=== PATIENT | male | born 1985 | race Caucasian/White ===

== ENCOUNTER 2019-05-29 14:40 | Inpatient (IN) | payer BC, MEDICAID ==
[~2019-05-29] VITALS: Ht 193 cm; Wt 95.3 kg
[~2019-05-29 14:40] MED LIST: HYDR12.5 PO; IMI50 PO; NAPR-1718 PO
[2019-05-29 15:06] VITALS: BP 116/69
--- NOTE | 2019-05-29 16:05 | NUR ---
PT AMBULATED TO BED 01
--- NOTE | 2019-05-29 16:11 | NUR ---
c/o sudden onset of n/v/d x 3 days; seen in [facility] rx mary anne asher returns today with hyperemesis---unable to tolerate any po including fluid epigastric pain Denies ETOH. Admits to "smoking weed". VSS hx---anxiety, laparoscopic cholecystectomy rx---none
--- NOTE | 2019-05-29 16:48 | NUR ---
DR RENTERIA EVALUATING PT @ BEDSIDE
[2019-05-29] MEDS ORDERED: ONDANSETRON 4 MG/2 ML VIAL ONE (16:51)
[2019-05-29] MEDS ORDERED: MORPHINE SULFATE 2 MG/ML SYR IVP ONE (17:00)
[2019-05-29] MEDS ORDERED: FAMOTIDINE 20 MG/2 ML VIAL IVP ONE (17:00)
[2019-05-29] MEDS ORDERED: NACL 0.9% 1,000 ML IV ONE (17:00)
[2019-05-29] MEDS ORDERED: METOCLOPRAMIDE 10 MG/2 ML INJ VIAL IVP ONE ×2 (17:00→18:05)
[2019-05-29 17:38] LABS: ALBUMIN 3.8 g/dL (3.4-5.0); ANION GAP 19.9 (8-16); CARBON DIOXIDE 20.9 mmol/L (21-32); TOTAL BILIRUBIN 0.5 mg/dL (0.0-1.0)
[2019-05-29 17:43] LABS: POTASSIUM 2.8 mmol/L (3.5-5.1)
--- NOTE | 2019-05-29 17:53 | NUR ---
URINE SAMPLE OBTAINED
[2019-05-29 18:03] LABS: BASOPHILS % (AUTO) 0.2 % (0.0-2.0); HEMATOCRIT 40.7 % (36-52); HEMOGLOBIN 13.4 g/dL (12.0-18.0); LYMPHOCYTES # (AUTO) 0.8 K/uL (2.0-11.5); LYMPHOCYTES % (AUTO) 7.1 % (20.5-51.1); MEAN CORPUSCULAR HEMOGLOBIN 29 pg (27-31); MEAN CORPUSCULAR HGB CONC 33 g/dL (33-37); MEAN CORPUSCULAR VOLUME 88.9 fL (80-94); MONOCYTES # (AUTO) 0.6 K/uL (0.8-1.0); MONOCYTES % (AUTO) 5.6 % (1.7-9.3); NEUTROPHILS # (AUTO) 9.3 K/uL (1.8-7.7); NEUTROPHILS % (AUTO) 87.1 % (42.2-75.2); PLATELET COUNT (AUTO) 179 K/uL (140-450); RED BLOOD CELL COUNT(AUTO) 4.57 MIL/uL (4.20-6.10); RED CELL DISTRIBUTION WIDTH 13.5 % (11.6-13.7); WHITE BLOOD COUNT (AUTO) 10.7 K/uL (4.8-10.8)
--- NOTE | 2019-05-29 18:03 | NUR ---
URINE DIPSTICK RESULT GIVEN TO DR RENTERIA ALSO INFORMED DR RENTERIA PT IS ACTIVELY VOMITING NOW AND C/O PAIN WITH VOMITING.
[2019-05-29] MEDS ORDERED: MORPHINE SULFATE 4 MG/ML SYR IVP ONE (18:05)
[2019-05-29] MEDS ORDERED: KCL 20 MEQ/WATER INJ PREMIX 100 ML IV ONE (18:05)
[2019-05-29] MEDS ORDERED: PANTOPRAZOLE 40 MG INJ VIAL IVP ONE (18:05)
[2019-05-29] MEDS ORDERED: MAG SULF 2000 MG/WATER PREMIX 50 ML IV ONE (18:05)
[2019-05-29] MEDS ORDERED: ACETAMINOPHEN 325 MG TAB PO PRN (18:35)
[2019-05-29] MEDS ORDERED: HYDROcodone/APAP 7.5/325 MG 1 TAB PO PRN (18:35)
[2019-05-29] MEDS ORDERED: DOCUSATE SODIUM 100 MG GELCAP PO PRN (18:35)
[2019-05-29 19:21] LABS: CHOL/HDL RATIO 2.5 (1-4.5); FREE T4 (FREE THYROXINE) 1.49 ng/dL (0.76-1.46); MAGNESIUM 1.7 mg/dL (1.8-2.4); THYROID STIMULATING HORMONE 1.64 uIU/mL (0.34-3.74)
--- NOTE | 2019-05-29 19:25 | NUR ---
Patient will be admitted to care of DR KAUR. Admited to TELE. Will go to room 106A. Belongings list completed. Report to JAYLAN BARFIELD. PULLED MAG RIDER FROM ER [facility], GAVE TO ACCEPTING FLOOR LICO TIAN AND MADE JAYLAN BARFIELD AWARE OF ORDER TO INFUSE.
[2019-05-29 19:29] LABS: PROTHROMBIN TIME 10.6 secs (10.8-13.4)
--- NOTE | 2019-05-29 19:30 | NUR ---
RECEIVED PATIENT FROM ER VIA GURNEY IN STABLE CONDITION. PATIENT IS A/OX4, ABLE TO MAKE NEEDS KNOWN. RESPIRATIONS EVEN, UNLABORED. SKIN ASSESSMENT COMPLETED. SKIN WARM, DRY AND INTACT. IV SITE TO LEFT AC 20G PATENT/INTACT. ABDOMEN SOFT, SLIGHTLY TENDER BUT TOLERABLE DISCOMFORT. NO NAUSEA AT THIS TIME. NO C/O PAIN. NO S/SX ACUTE DISTRESS. MSRA SCREEN COMPLETED. PATIENT ORIENTED TO ROOM, STAFF AND CALL LIGHT. PLAN OF CARE DISCUSSED WITH PATIENT. ALL OTHER NEEDS MET. CALL LIGHT WITHIN REACH. WILL CONTINUE TO MONITOR.
[2019-05-29 20:00] VITALS: BP 113/65
[2019-05-29 20:04] LABS: APPEARANCE,URINE CLEAR (CLEAR); BILIRUBIN,URINE NEGATIVE (NEGATIVE); BLOOD, URINE NEGATIVE (NEGATIVE); COLOR,URINE YELLOW (YELLOW); LEUKOCYTE ESTERASE ,URINE NEGATIVE (NEGATIVE); NITRITE, URINE NEGATIVE (NEGATIVE); PH,URINE 8.5 (5.0-9.0); UGLUCOSE NEGATIVE (NEGATIVE)
[2019-05-29 20:12] LABS: BARBITURATE, URINE NEG. ng/ml (NEG <=200); BENZODIAZEPINE, URINE NEG. ng/mL (NEG <=200); CANNABINOID, URINE POS. ng/mL (NEG <=50); COCAINE, URINE NEG. ng/mL (NEG <=300); OPIATE, URINE NEG. ng/mL (NEG <=2000); PHENCYCLIDINE SCREEN,URINE NEG. ng/mL (NEG <=25)
[2019-05-29] MEDS ORDERED: POTASSIUM CHLORIDE 10 MEQ TABER PO SCH (20:25)
[2019-05-29] MEDS ORDERED: SODIUM PHOS / POTASSIUM PHOS 1 PKT PDR PO SCH (20:30)
[2019-05-29] MEDS ORDERED: ALUMINUM HYD/MAG/SIMETHICONE 30 ML UDC PO SCH (20:30)
[2019-05-29] MEDS ORDERED: LIDOCAINE VISCOUS 2% 20 ML UDC PO SCH (20:30)
[2019-05-29] MEDS ORDERED: DICYCLOMINE HCL LIQUID 10 MG/5 ML UDC PO SCH (20:30)
[2019-05-29] MEDS ORDERED: metroNIDAZOLE 500 MG TAB PO SCH (20:35)
--- NOTE | 2019-05-29 21:00 | NUR ---
PATIENT IN STABLE CONDITION. NO C/O PAIN. NO S/SX ACUTE DISTRESS. CALL LIGHT WITHIN REACH. WILL CONTINUE TO MONITOR.
[2019-05-29] MEDS: NACL 0.9% 1,000 ML IV SCH (22:00)
--- NOTE | 2019-05-29 23:38 | NUR ---
MADE ROUNDS. PATIENT IS AWAKE AND IN STABLE CONDITION. NO C/O PAIN. NO S/SX ACUTE DISTRESS. CALL LIGHT WITHIN REACH. WILL CONTINUE TO MONITOR.
[2019-05-30] VITALS: BP 99/51
--- NOTE | 2019-05-30 01:08 | NUR ---
PATIENT IS ASLEEP AND IN STABLE CONDITION. NO C/O PAIN. NO S/SX ACUTE DISTRESS. CALL LIGHT WITHIN REACH. WILL CONTINUE TO MONITOR.
--- NOTE | 2019-05-30 03:00 | NUR ---
MADE ROUNDS. PATIENT IS ASLEEP AND CONTINUES IN STABLE CONDITION. NO C/O PAIN. NO S/SX ACUTE DISTRESS. CALL LIGHT WITHIN REACH. WILL CONTINUE TO MONITOR.
[2019-05-30 04:00] VITALS: BP 114/71
[2019-05-30] MEDS: NACL 0.9% 1,000 ML IV SCH ×4 (04:35→21:01)
--- NOTE | 2019-05-30 05:26 | NUR ---
PATIENT AWAKE AND IN STABLE CONDITION. NO C/O PAIN. NO S/SX ACUTE DISTRESS. CALL LIGHT WITHIN REACH. WILL CONTINUE TO MONITOR.
[2019-05-30] MEDS: DICYCLOMINE HCL LIQUID 10 MG/5 ML UDC PO SCH ×3 (06:20→20:57)
[2019-05-30] MEDS ORDERED: PANTOPRAZOLE 40 MG TABEC PO SCH (06:30)
[2019-05-30] MEDS: ONDANSETRON 4 MG/2 ML VIAL IM/IVP PRN (06:53)
--- NOTE | 2019-05-30 07:23 | NUR ---
ENDORSED PATIENT TO AM SHIFT IN STABLE CONDITION FOR CONTINUITY OF CARE.
--- NOTE | 2019-05-30 07:28 | NUR ---
RECEIVED REPORT FROM NIGHT NURSE. PT IN BED, VOMITING AT THIS TIME, IN STABLE CONDITION. ZOFRAN GIVEN AT 0700 BY PM NURSE. RESPIRATIONS EVEN AND UNLABORED ON ROOM AIR. SKIN INTACT. IV IN PLACE PATENT AND ASYMPTOMATIC IN L AC 20G INFUSING PER ORDER. FULL LIQUID DIET, AMBULATORY. SAFETY MEASURES IN PLACE. CALL LIGHT WITHIN REACH, BED IN LOW POSITION. WILL CONTINUE TO MONITOR.
[2019-05-30 07:42] LABS: BASOPHILS % (AUTO) 0.2 % (0.0-2.0); EOSINOPHILS % (AUTO) 0.2 % (0.0-4.0); HEMATOCRIT 38.8 % (36-52); HEMOGLOBIN 12.7 g/dL (12.0-18.0); LYMPHOCYTES # (AUTO) 2.7 K/uL (2.0-11.5); LYMPHOCYTES % (AUTO) 30.2 % (20.5-51.1); MEAN CORPUSCULAR HEMOGLOBIN 29 pg (27-31); MEAN CORPUSCULAR HGB CONC 33 g/dL (33-37); MONOCYTES % (AUTO) 11.3 % (1.7-9.3); NEUTROPHILS # (AUTO) 5.2 K/uL (1.8-7.7); NEUTROPHILS % (AUTO) 58.1 % (42.2-75.2); PLATELET COUNT (AUTO) 185 K/uL (140-450); RED BLOOD CELL COUNT(AUTO) 4.36 MIL/uL (4.20-6.10); RED CELL DISTRIBUTION WIDTH 13.8 % (11.6-13.7)
[2019-05-30 07:50] LABS: ANION GAP 12.3 (8-16); CARBON DIOXIDE 26.7 mmol/L (21-32); CREATININE 0.8 mg/dL (0.6-1.3)
[2019-05-30 07:53] LABS: MAGNESIUM 2.5 mg/dL (1.8-2.4); PHOSPHORUS 2.4 mg/dL (2.5-4.9)
[2019-05-30 08:00] VITALS: BP 123/70
[2019-05-30] MEDS ORDERED: KCL 20 MEQ/WATER INJ PREMIX 200 ML IV PRN (08:00)
[2019-05-30] MEDS: MORPHINE SULFATE 2 MG/ML SYR IVP PRN ×2 (08:01→12:01)
--- NOTE | 2019-05-30 08:06 | NUR ---
PT REQUESTS PAIN MEDS FOR ABDOMINAL PAIN OF 7 SECONDARY TO EXTENSIVE VOMITING. 1MG PRN MORPHINE GIVEN AT THIS TIME. WILL CONTINUE TO MONITOR.
[2019-05-30] MEDS ORDERED: MAG SULF 2000 MG/WATER PREMIX 100 ML IV ONE (08:10)
--- NOTE | 2019-05-30 08:24 | NUR ---
PATIENT HAS BEEN SCREENED AND CATEGORIZED HIGH NUTRITION RISK. PATIENT WILL BE SEEN WITHIN 1-2 DAYS OF ADMISSION. 05/30/19-05/31/[address]
[2019-05-30] MEDS ORDERED: MAGNESIUM OXIDE 400 MG TAB PO SCH (09:00)
[2019-05-30] MEDS ORDERED: SODIUM PHOSPHATE 15 MMOLE in NACL 0.9% 250 ML IV SCH (09:30)
[2019-05-30] MEDS: PANTOPRAZOLE 40 MG INJ VIAL IVP SCH (09:41)
--- NOTE | 2019-05-30 09:53 | NUR ---
MEDICATIONS ADMINISTERED PER ORDER. PT TOLERATED WELL. SAFETY MEASURES IN PLACE. CALL LIGHT WITHIN REACH, WILL CONTINUE TO MONITOR.
[2019-05-30] MEDS ORDERED: PROMETHAZINE 25 MG/ML VIAL IVP SCH (10:00)
[2019-05-30 12:00] VITALS: BP 110/57
--- NOTE | 2019-05-30 12:23 | NUR ---
PT IN BED ASLEEP, NO DISTRESS NOTED. SAFETY MEASURES IN PLACE, CALL LIGHT WITHIN REACH. WILL CONTINUE TO MONITOR.
[2019-05-30] MEDS: metroNIDAZOLE 500 MG/NS PREMIX 100 ML IV SCH ×2 (13:00→20:56)
--- NOTE | 2019-05-30 13:07 | NUR ---
[facility] [place] Note: Basic Screen: Yes High Risk DC Screen [place]: MALENA Lyon Relationship: SISTER Pre-Admission Living Arrangements: Lives with Other Prior ADL Independent Current Home Health Name/Tel: N/A Current DME/02 Name/Tel: N/A Current Hospice Name/Tel: N/A Current Dialysis Name/Tel: N/A Healthcare Decision Maker: Patient Advance Directive No Physician Orders for Life Sustaining Treatment Form No Patient/Family Have Educational Needs No Information Taught: Advance Directive Community Resources Person Taught: Patient Teaching Tools: Verbal Factors Affecting Learning: None Participation Level: Refused Evaluation: Verbalizes Understanding Needs Additional Education: No Discipline: Case Mgt/Social Svcs Tentative Discharge Plan/Destination: No Needs Identified Will require assistance post discharge: No Referred to Painter Apprentice: No Tentative Discharge Plan Summary: Patient is a 34-year-old male admitted for intractable vomiting. Patient has PMHX of anxiety and sleep disorders. Patient was admitted from home where he lives with family. SW met with patient at bedside to verify demographics. Patient reported history of mental health. Patient stated that he was diagnosed with anxiety and depression and is prescribed psychiatric medication through his PCP: Dr. Sergio Krause. Patient stated that he discontinued psychotherapy with his therapist and is not in need of mental health resources. Patient stated that he recreationally smokes marijuana but reaffirmed that it is not an issue and refused substance abuse resources. Patient's tentative discharge plan is to return home. No further needs identified. Signature: VANESSA Almanza Date: May 30, 2019 Time: 13:05
--- NOTE | 2019-05-30 13:43 | NUR ---
05/30/19 RD INITIAL ASSESSMENT COMPLETED PLEASE REFER TO NUTRITION ASSESSMENT UNDER CARE ACTIVITY FOR ESTIMATED NUTRITIONAL NEEDS. 1. CONTINUE NPO DIET PER MD. 2. IF/WHEN MEDICALLY STABLE, ADVANCE PT TO BRAT DIET 3. RECOMMEND ENSURE TID 4. RD TO FOLLOW-UP 2-3 DAYS, HIGH RISK JAVAN TONG RD
--- NOTE | 2019-05-30 14:27 | NUR ---
MEDICATIONS ADMINISTERED PER ORDER. PT TOLERATED WELL, NO DISTRESS NOTED. SAFETY MEASURES IN PLACE CALL LIGHT WITHIN REACH. WILL CONTINUE TO MONITOR.
[2019-05-30 16:00] VITALS: BP 114/58
--- NOTE | 2019-05-30 16:58 | NUR ---
PT IN BED AWAKE, NO DISTRESS NOTED. DENIES PAIN AT THIS TIME. SAFETY MEASURES IN PLACE. CALL LIGHT WITHIN REACH, WILL CONTINUE TO MONITOR.
--- NOTE | 2019-05-30 19:02 | NUR ---
ENDORSED PT TO NIGHT NURSE IN STABLE CONDITION FOR CONTINUITY OF CARE.
--- NOTE | 2019-05-30 19:15 | NUR ---
RECEIVED PTFROM DAYSHIFT NURSE PT IS AAOX4 AMBULATORY NOT VOMITING NOT NAUSEAS T THIS TIME ON TELMETY SB IV ON LEFT AC INFUSING WELL INITIAL ASSESSMENT DONE
[2019-05-30 20:00] VITALS: BP 112/69
--- NOTE | 2019-05-30 22:00 | NUR ---
PT REMAIN STABLE NOT NAUSEAS NOT VOMITING TOLERATED WELL CLEAR LIQUID DIET
[2019-05-31] VITALS: BP 110/60
--- NOTE | 2019-05-31 02:13 | NUR ---
PT SLEEPING WELL NOT DISTRESS NOTED IV ON LEFT AC INFUSING WELL DR MICHELLE KAY TELEMETRY , PT REMAIN STABLE
--- NOTE | 2019-05-31 04:00 | NUR ---
PT SLEEPING WELL NOT SIGNS OF DISTRESS NOTED IV ON LEFT AC INFUSING WELL
[2019-05-31] MEDS: DICYCLOMINE HCL LIQUID 10 MG/5 ML UDC PO SCH ×2 (04:44→13:00)
[2019-05-31] MEDS: metroNIDAZOLE 500 MG/NS PREMIX 100 ML IV SCH ×2 (04:45→13:00)
--- NOTE | 2019-05-31 04:55 | NUR ---
PT VERBALIZED TO FEEL BETTER HUNGRY NOT NAUSEAS NOT VOMITING
--- NOTE | 2019-05-31 06:31 | NUR ---
PT STABLE WILL BE ENDORSSED TO DAY SHIFT NURSE FOR CONTINUE OF CARE
[2019-05-31 06:58] LABS: BASOPHILS % (AUTO) 0.8 % (0.0-2.0); EOSINOPHILS # (AUTO) 0.1 K/uL (0-0.4); EOSINOPHILS % (AUTO) 1.1 % (0.0-4.0); HEMATOCRIT 37.4 % (36-52); HEMOGLOBIN 12.9 g/dL (12.0-18.0); LYMPHOCYTES % (AUTO) 32.2 % (20.5-51.1); MEAN CORPUSCULAR HEMOGLOBIN 30 pg (27-31); MEAN CORPUSCULAR HGB CONC 35 g/dL (33-37); MEAN CORPUSCULAR VOLUME 85.6 fL (80-94); MONOCYTES # (AUTO) 0.5 K/uL (0.8-1.0); MONOCYTES % (AUTO) 8.4 % (1.7-9.3); NEUTROPHILS # (AUTO) 3.6 K/uL (1.8-7.7); NEUTROPHILS % (AUTO) 57.5 % (42.2-75.2); PLATELET COUNT (AUTO) 183 K/uL (140-450); RED BLOOD CELL COUNT(AUTO) 4.37 MIL/uL (4.20-6.10); RED CELL DISTRIBUTION WIDTH 13.3 % (11.6-13.7); WHITE BLOOD COUNT (AUTO) 6.2 K/uL (4.8-10.8)
--- NOTE | 2019-05-31 07:02 | NUR ---
RECEIVED REPORT FROM NIGHT NURSE. PT IN BED ASLEEP, AROUSABLE TO SPEECH, NO DISTRESS NOTED, DENIES PAIN. RESPIRATIONS EVEN AND UNLABORED ON ROOM AIR. IV IN PLACE IN L AC 20G PATENT AND ASYMPTOMATIC INFUSING PER ORDER. SKIN INTACT. SAFETY MEASURES IN PLACE, CALL LIGHT WITHIN REACH, BED IN LOW POSITION. WILL CONTINUE TO MONITOR.
[2019-05-31 07:22] LABS: ANION GAP 8.3 (8-16); CARBON DIOXIDE 29.4 mmol/L (21-32); CREATININE 0.8 mg/dL (0.6-1.3)
[2019-05-31 08:00] VITALS: BP 112/69
[2019-05-31 08:09] LABS: T4 (THYROXINE) 10.7 ug/dL (4.5-12.0)
[2019-05-31 08:30] LABS: POTASSIUM 2.7 mmol/L (3.5-5.1)
[2019-05-31] MEDS ORDERED: METR250T2 PO (08:44)
[2019-05-31] MEDS: ONDANSETRON 4 MG/2 ML VIAL IM/IVP PRN (08:48)
[2019-05-31] MEDS: NACL 0.9% 1,000 ML IV SCH ×2 (08:52→15:47)
[2019-05-31] MEDS ORDERED: SODIUM PHOS / POTASSIUM PHOS 1 PKT PDR PO SCH (08:54)
[2019-05-31] MEDS: PANTOPRAZOLE 40 MG INJ VIAL IVP SCH (09:00)
[2019-05-31] MEDS: MORPHINE SULFATE 2 MG/ML SYR IVP PRN ×2 (09:21→14:23)
--- NOTE | 2019-05-31 09:21 | NUR ---
MEDICATIONS ADMINISTERED PER ORDER. PT TOLERATED WELL. PO MEDICATION NOT GIVEN DUE TO PT VOMITING CONSTANTLY. WILL CONTINUE TO MONITOR.
[2019-05-31] MEDS ORDERED: POTASSIUM CHLORIDE 40 MEQ, LIDOCAINE MPF 1% 25 MG in NACL 0.9% 250 ML IV ONE ×2 (09:45→12:45)
[2019-05-31] MEDS: SODIUM PHOS / POTASSIUM PHOS 1 PKT PDR PO SCH ×2 (11:30→16:30)
--- NOTE | 2019-05-31 11:49 | NUR ---
MEDICATIONS ADMINISTERED PER ORDER. PT TOLERATED WELL, NO DISTRESS NOTED. PAIN BEING MANAGED. SAFETY MEASURES IN PLACE. CALL LIGHT WITHIN REACH. WILL CONTINUE TO MONITOR.
[2019-05-31] MEDS ORDERED: PROMETHAZINE 25 MG/ML VIAL IM PRN (12:05)
--- NOTE | 2019-05-31 14:02 | NUR ---
IV SITE CHANGED. LUMEN INTACT AND MINIMAL BLOOD LOSS OF REMOVED IV. CONNECTED PT TO OXYGEN BY HIS REQUEST. 2L O2 VIA NC. SAFETY MEASURES IN PLACE. CALL LIGHT WITHIN REACH, WILL CONTINUE TO MONITOR.
[2019-05-31 16:00] VITALS: BP 101/59
--- NOTE | 2019-05-31 16:08 | NUR ---
PT IN BED, SLEEPING. NO DISTRESS NOTED. RESPIRATIONS EVEN AND UNLABORED ON ROOM AIR. SAFETY MEASURES IN PLACE. CALL LIGHT WITHIN REACH. WILL CONTINUE TO MONITOR.
[2019-05-31] MEDS ORDERED: ONDA4TAB PO (17:10)
[2019-05-31 17:15] LABS: ANION GAP 11.9 (8-16); CARBON DIOXIDE 25.2 mmol/L (21-32); CREATININE 0.7 mg/dL (0.6-1.3); POTASSIUM 3.1 mmol/L (3.5-5.1)
[2019-05-31 17:19] LABS: MAGNESIUM 1.7 mg/dL (1.8-2.4); PHOSPHORUS 2.4 mg/dL (2.5-4.9)
[2019-05-31 18:32] VITALS: BP 101/59
--- NOTE | 2019-05-31 18:50 | NUR ---
PT READY TO BE DISCHARGED, PENDING FINALIZATION OF IV POTASSIUM. DISCHARGE MEDICATION, FOLLOWUP EDUCATION GIVEN. PT VERBALIZED UNDERSTANDING. DISCHARGE PAPERWORK SIGNED. PT REFUSED PNA AND FLU VACCINE. IV STIL IN PLACE TO BE REMOVED BY NIGHT NURSE. ID BANDS STILL IN PLACE. WILL ENDORSE TO NIGHT NURSE TO FINISH DISCHARGE.
--- NOTE | 2019-05-31 19:30 | NUR ---
RECEIVED PT AAOX4 , NID , W/ IV POTASSIUM RIDER ON GOING - FOR DISCHARGED ONCE THE POTASSIUM TIV CONSUME ORDERED , ALL DISCHARGE DOCUMENTS ALREADY SIGNED AND GIVEN TO PT SAID BY AM SHIFT NOD . PT COMFORTABLLY RESTING ON BED , NO COMPLAIN MADE . POC DISCUSSES AND VERBALOIZE UNDERSTANDING , CALL LIGHT WITHIN REACH , RELATIVES AT BEDSIDE.
--- NOTE | 2019-05-31 21:35 | NUR ---
IV POTASSIUM CONSUMED - NO S/ S NOTED AT THIS TIME , IV CANULLA REMOVED - NEEDLE INTACT AND PROCEDURE TOLERATED WELL , MIN. BLEEDING . EXCUSE LETTER GIVEN PT'S REQUESTED . DISCHARGE AMBULATORY ACCOMPANIED BY RELATIVES
== END 2019-05-31 21:35 | disposition home or self-care (01) | DRG 249 ==
LOC: MED 14:40 → MTU 18:39
PROVIDERS: ADMIT General Practice; ATTEND General Practice
DX: K52.9 Noninfective gastroenteritis and colitis, unspecified (principal); E83.39 Other disorders of phosphorus metabolism; K29.70 Gastritis, unspecified, without bleeding; E87.6 Hypokalemia; E83.42 Hypomagnesemia; F41.9 Anxiety disorder, unspecified; G47.9 Sleep disorder, unspecified; E78.2 Mixed hyperlipidemia; G47.00 Insomnia, unspecified; F12.10 Cannabis abuse, uncomplicated; Z79.899 Other long term (current) drug therapy; Z90.49 Acquired absence of other specified parts of digestive tract
CPT/HCPCS: 36415; 71045; 80048; 80053; 80305; 81003; 82150; 83036; 83690; 83735; 83880; 84100; 84436; 84439; 84443; 84479; 84484; 85025; 85610; 85730; 87045; 87070; 87081; 93005; 96361; 96374; 96375; 96376; 99285; C9113; J2001; J2270; J2405; J2550; J2765; J3475; J3480; J3490; J7030; Q0092

== ENCOUNTER 2019-08-27 12:56 | Emergency (ER) | payer SELFPAY ==
[~2019-08-27] VITALS: Ht 177.8 cm; Wt 83.9 kg
[~2019-08-27 12:56] MED LIST changes: +METR250T2 PO; +ONDA4TAB PO
[2019-08-27 13:07] VITALS: BP 110/78
--- NOTE | 2019-08-27 13:09 | NUR ---
PT AMBULATED TO BED 12
--- NOTE | 2019-08-27 13:17 | NUR ---
C/O ABD PAIN 01/11, VOMITING SINCE THIS MORNING, CURRENTLY DRY HEAVING. PT STATES HE HASNT EATEN ANYTHING TODAY.SELF MEDICATED WITH ZOFRAN WITH NO RELIEF, PT AWAKE, ALERT, AFIBRILE , AMBULATORY WITH STEADY GAIT , MOIST MUCOUS MEMBRANE , ABLE TO PEE , DENIES DIARRHEA. TIMMY
[2019-08-27] MEDS ORDERED: ONDANSETRON 4 MG/2 ML VIAL IVP ONE (13:30)
[2019-08-27] MEDS ORDERED: NACL 0.9% 1,000 ML IV ONE (13:30)
--- NOTE | 2019-08-27 13:30 | NUR ---
DR HOWARD AT BEDSIDE EVALUATING PT.
[2019-08-27] MEDS ORDERED: HALOPERIDOL IM 5 MG/ML VIAL IVP ONE (13:35)
[2019-08-27 13:57] LABS: BASOPHILS # (AUTO) 0.1 K/uL (0.00-0.22); BASOPHILS % (AUTO) 0.9 % (0.0-2.0); EOSINOPHILS % (AUTO) 0.1 % (0.0-4.0); HEMATOCRIT 43.7 % (36-52); HEMOGLOBIN 14.6 g/dL (12.0-18.0); LYMPHOCYTES # (AUTO) 1.8 K/uL (2.0-11.5); LYMPHOCYTES % (AUTO) 15.8 % (20.5-51.1); MEAN CORPUSCULAR HEMOGLOBIN 30 pg (27-31); MEAN CORPUSCULAR HGB CONC 34 g/dL (33-37); MEAN CORPUSCULAR VOLUME 89.1 fL (80-94); MONOCYTES # (AUTO) 0.4 K/uL (0.8-1.0); MONOCYTES % (AUTO) 3.3 % (1.7-9.3); NEUTROPHILS % (AUTO) 79.9 % (42.2-75.2); PLATELET COUNT (AUTO) 253 K/uL (140-450); RED CELL DISTRIBUTION WIDTH 14.2 % (11.6-13.7); WHITE BLOOD COUNT (AUTO) 11.2 K/uL (4.8-10.8)
--- NOTE | 2019-08-27 14:06 | NUR ---
PT COMFORTABLE IN BED SIDE RAILS UP X1 AND LOCK.
--- NOTE | 2019-08-27 14:08 | NUR ---
PT WENT TO BR WITH STEADY GAIT TO PEE.
--- NOTE | 2019-08-27 14:11 | NUR ---
PT BACK IN BED .
[2019-08-27 14:20] LABS: BILIRUBIN,URINE NEGATIVE (NEGATIVE); BLOOD, URINE NEGATIVE (NEGATIVE); LEUKOCYTE ESTERASE ,URINE NEGATIVE (NEGATIVE); NITRITE, URINE NEGATIVE (NEGATIVE); UGLUCOSE NEGATIVE (NEGATIVE)
[2019-08-27 14:25] LABS: ALBUMIN 4.2 g/dL (3.4-5.0); ANION GAP 13.9 (8-16); CARBON DIOXIDE 26.5 mmol/L (21-32); CREATININE 1.1 mg/dL (0.6-1.3); POTASSIUM 3.4 mmol/L (3.5-5.1); TOTAL BILIRUBIN 0.2 mg/dL (0.0-1.0)
[2019-08-27 14:25] LABS: APPEARANCE,URINE CLEAR (CLEAR); COLOR,URINE YELLOW (YELLOW)
[2019-08-27] MEDS ORDERED: PANTOPRAZOLE 40 MG INJ VIAL IVP ONE (14:45)
[2019-08-27] MEDS ORDERED: KETOROLAC 30 MG/ML VIAL IVP ONE (14:45)
--- NOTE | 2019-08-27 14:45 | NUR ---
PT C/O EPIGASTRIC PAIN 07/12 .DR HOWARD INFORMED AND AWARE.
[2019-08-27 14:47] LABS: BARBITURATE, URINE NEGATIVE ng/ml (NEG <=200); BENZODIAZEPINE, URINE NEGATIVE ng/mL (NEG <=200); CANNABINOID, URINE POSITIVE ng/mL (NEG <=50); COCAINE, URINE NEGATIVE ng/mL (NEG <=300); OPIATE, URINE NEGATIVE ng/mL (NEG <=2000); PHENCYCLIDINE SCREEN,URINE NEGATIVE ng/mL (NEG <=25)
[2019-08-27 15:13] VITALS: BP 121/75
--- NOTE | 2019-08-27 15:19 | NUR ---
Patient discharged with v/s stable. Written and verbal after care instructions given and explained regarding nausea and vomitting. Patient alert, oriented and verbalized understanding of instructions. Ambulatory with steady gait. All questions addressed prior to discharge. ID band removed. Patient advised to follow up with PMD. Rx of zofran given. Patient educated on indication of medication including possible reaction and side effects. Opportunity to ask questions provided and answered.
== END 2019-08-27 15:19 | disposition home or self-care (01) ==
LOC: MED 12:56
DX: F12.929 Cannabis use, unspecified with intoxication, unspecified (principal); R11.2 Nausea with vomiting, unspecified; R10.13 Epigastric pain; Z79.899 Other long term (current) drug therapy
CPT/HCPCS: 36415; 80053; 80305; 81003; 83690; 85025; 96361; 96374; 96375; 99284; C9113; J1630; J1885; J2405; J7030

== ENCOUNTER 2020-06-14 21:05 | Emergency (ER) | payer OTHER ==
[~2020-06-14] VITALS: Ht 193 cm; Wt 99.8 kg
[~2020-06-14 21:05] MED LIST changes: +METR-520 PO; -METR250T2 PO
[2020-06-14 21:10] VITALS: BP 132/94
--- NOTE | 2020-06-14 21:20 | NUR ---
PATIENT PRESENTS TO ED WITH C/O LACERATION RIGHT 3RD DIGIT . PT STATES IT WAS CLOSED IN SLIDING GLASS DOOR . VSS; PATIENT POSITIONED FOR COMFORT; HOB ELEVATED; BEDRAILS UP X2; BED DOWN. ER MD MADE AWARE OF PT STATUS. SUPERFICIAL LACERATION NOTED BLEEDING CONTROLLED. FROM NOTED
[2020-06-14] MEDS ORDERED: LIDOCAINE/EPI 1% 1:100000 20 ML VIAL INJ ONE (21:25)
--- NOTE | 2020-06-14 22:27 | NUR ---
CLEANED AND IRAGATED PT'S WOUND WITH NS AND BETADINE, AFTER APPLIED DURMABOND AND WRAPED WITH NON-ADH BANDAGE AND PLACED FINGER IMOBBILIZER ON PTS SECOND DIGET ON PTS LEFT HAND WITHOUT INCIDENT. CHECKED PMSC'S BEFORE AND AFTER PLACMENT OF BANDAGE AND IMOBBILIZER WITHOUT INCIDENT.
[2020-06-14 22:30] VITALS: BP 132/94
--- NOTE | 2020-06-14 22:30 | NUR ---
Patient discharged with v/s stable. Written and verbal after care instructions given and explained. Patient verbalized understanding. Ambulatory with steady gait. All questions addressed prior to discharge. Advised to follow up with PMD.
== END 2020-06-14 22:30 | disposition home or self-care (01) ==
LOC: MED 21:05
DX: S61.213A Laceration without foreign body of left middle finger without damage to nail, initial encounter (principal); W25.XXXA Contact with sharp glass, initial encounter; Y93.89 Activity, other specified; Y92.89 Other specified places as the place of occurrence of the external cause; Y99.8 Other external cause status
CPT/HCPCS: 12001; 73130; 99283

== ENCOUNTER 2020-09-27 19:27 | Emergency (ER) | payer OTHER ==
[~2020-09-27] VITALS: Ht 193 cm; Wt 99.8 kg
[2020-09-27 19:30] VITALS: BP 133/73
--- NOTE | 2020-09-27 19:30 | NUR ---
TO BED VIA W/C
--- NOTE | 2020-09-27 19:40 | NUR ---
PT. IS A 35 Y/O MALE THAT CAME INTO ED ACCOMPANIED BY FATHER WITH C/O OF N/V. PT. STATES IT HAS LASTED FOR 24 HRS., STARTING AT AROUND 5PM. PT. ALSO STATES THAT HE HAS UPPER ABDOMINAL PAIN THAT HE RATED AT 8/10 ON THE PAIN SCALE. PT. APPEARS TO BE ANXIOUS AND IS SEEN HAVING FACIAL GRIMACES. DENIES DIARRHEA; SKIN IS PINK/WARM/DRY; AAOX4 WITH EVEN AND STEADY GAIT; LUNGS CLEAR BL; HR EVEN AND REGULAR; PT DENIES ANY FEVER, CP, SOB, OR COUGH AT THIS TIME; VSS; PATIENT POSITIONED FOR COMFORT; HOB ELEVATED; BEDRAILS UP X2; BED DOWN. ER MD MADE AWARE OF PT STATUS.
--- NOTE | 2020-09-27 19:54 | NUR ---
LABS DRAWN AND TAKEN TO LAB
[2020-09-27] MEDS ORDERED: NACL 0.9% 1,000 ML IV ONE (20:00)
[2020-09-27] MEDS ORDERED: diphenhydrAMINE 50 MG/ML VIAL IVP ONE (20:00)
[2020-09-27] MEDS ORDERED: HALOPERIDOL IM 5 MG/ML VIAL IVP ONE (20:00)
[2020-09-27 20:09] LABS: BASOPHILS # (AUTO) 0.1 K/uL (0.00-0.22); BASOPHILS % (AUTO) 0.5 % (0.0-2.0); HEMATOCRIT 43.8 % (36-52); HEMOGLOBIN 14.9 g/dL (12.0-18.0); LYMPHOCYTES # (AUTO) 0.6 K/uL (2.0-11.5); LYMPHOCYTES % (AUTO) 3.9 % (20.5-51.1); MEAN CORPUSCULAR HEMOGLOBIN 30 pg (27-31); MEAN CORPUSCULAR HGB CONC 34 g/dL (33-37); MEAN CORPUSCULAR VOLUME 88.1 fL (80-94); MONOCYTES # (AUTO) 0.4 K/uL (0.8-1.0); MONOCYTES % (AUTO) 2.4 % (1.7-9.3); NEUTROPHILS # (AUTO) 15.5 K/uL (1.8-7.7); NEUTROPHILS % (AUTO) 93.2 % (42.2-75.2); PLATELET COUNT (AUTO) 240 K/uL (140-450); RED BLOOD CELL COUNT(AUTO) 4.97 MIL/uL (4.20-6.10); RED CELL DISTRIBUTION WIDTH 14.4 % (11.6-13.7); WHITE BLOOD COUNT (AUTO) 16.6 K/uL (4.8-10.8)
[2020-09-27 20:26] LABS: ALBUMIN 4.4 g/dL (3.4-5.0); ANION GAP 22.3 (8-16); CARBON DIOXIDE 18.4 mmol/L (21-32); CREATININE 1.2 mg/dL (0.6-1.3); POTASSIUM 3.7 mmol/L (3.5-5.1); TOTAL BILIRUBIN 0.5 mg/dL (0.0-1.0)
[2020-09-27] MEDS ORDERED: ONDA-24 PO (20:53)
[2020-09-27] MEDS ORDERED: FAMO-90 PO (20:53)
[2020-09-27 21:05] VITALS: BP 133/73
--- NOTE | 2020-09-27 21:05 | NUR ---
Patient discharged with v/s stable. Written and verbal after care instructions given and explained. Patient alert, oriented and verbalized understanding of instructions. Ambulatory with steady gait. All questions addressed prior to discharge. Patient advised to follow up with PMD. Rx of PEPCID AND ZOFRAN ODT given. Patient educated on indication of medication including possible reaction and side effects. Opportunity to ask questions provided and answered.
== END 2020-09-27 21:05 | disposition home or self-care (01) ==
LOC: MED 19:27
DX: R11.10 Vomiting, unspecified (principal); D72.829 Elevated white blood cell count, unspecified; R73.9 Hyperglycemia, unspecified; Z90.49 Acquired absence of other specified parts of digestive tract
CPT/HCPCS: 36415; 80053; 83690; 85025; 96361; 96374; 96375; 99284; J1200; J1630

== ENCOUNTER 2020-10-08 12:45 | Emergency (ER) | payer OTHER ==
[~2020-10-08] VITALS: Ht 193 cm; Wt 99.8 kg
[~2020-10-08 12:45] MED LIST changes: +FAMO-90 PO; +ONDA-24 PO
[2020-10-08 12:55] VITALS: BP 112/43
--- NOTE | 2020-10-08 13:02 | NUR ---
PT TO AWAIT IN LOBBY
--- NOTE | 2020-10-08 13:28 | NUR ---
Patient ambulated to bed 5.
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
--- NOTE | 2020-10-08 13:34 | NUR ---
DR RENTERIA AT BEDSIDE EVALUATING PT
[2020-10-08] MEDS ORDERED: HALOPERIDOL IM 5 MG/ML VIAL IM ONE (13:35)
[2020-10-08] MEDS ORDERED: ONDANSETRON 4 MG/2 ML VIAL IVP ONE (13:35)
[2020-10-08] MEDS ORDERED: NACL 0.9% 1,000 ML IV SCH (13:35)
[2020-10-08 14:05] LABS: BASOPHILS # (AUTO) 0.1 K/uL (0.00-0.22); BASOPHILS % (AUTO) 0.4 % (0.0-2.0); EOSINOPHILS % (AUTO) 0.1 % (0.0-4.0); HEMATOCRIT 47.9 % (36-52); HEMOGLOBIN 16.1 g/dL (12.0-18.0); LYMPHOCYTES # (AUTO) 1.2 K/uL (2.0-11.5); LYMPHOCYTES % (AUTO) 8.2 % (20.5-51.1); MEAN CORPUSCULAR HEMOGLOBIN 30 pg (27-31); MEAN CORPUSCULAR HGB CONC 34 g/dL (33-37); MEAN CORPUSCULAR VOLUME 89.6 fL (80-94); MONOCYTES # (AUTO) 0.4 K/uL (0.8-1.0); MONOCYTES % (AUTO) 2.6 % (1.7-9.3); NEUTROPHILS # (AUTO) 12.5 K/uL (1.8-7.7); NEUTROPHILS % (AUTO) 88.7 % (42.2-75.2); PLATELET COUNT (AUTO) 274 K/uL (140-450); RED BLOOD CELL COUNT(AUTO) 5.35 MIL/uL (4.20-6.10); RED CELL DISTRIBUTION WIDTH 14.1 % (11.6-13.7); WHITE BLOOD COUNT (AUTO) 14.1 K/uL (4.8-10.8)
[2020-10-08] MEDS ORDERED: METOCLOPRAMIDE 10 MG/2 ML INJ VIAL IVP ONE (14:05)
[2020-10-08] MEDS ORDERED: LIDOCAINE VISCOUS 2% 20 ML UDC PO ONE (14:05)
[2020-10-08] MEDS ORDERED: PANTOPRAZOLE 40 MG TABEC PO ONE (14:05)
[2020-10-08] MEDS ORDERED: ALUMINUM HYD/MAG/SIMETHICONE 30 ML UDC PO ONE (14:05)
[2020-10-08 14:08] LABS: APPEARANCE,URINE CLEAR (CLEAR); BILIRUBIN,URINE NEGATIVE (NEGATIVE); BLOOD, URINE NEGATIVE (NEGATIVE); COLOR,URINE YELLOW (YELLOW); LEUKOCYTE ESTERASE ,URINE NEGATIVE (NEGATIVE); NITRITE, URINE NEGATIVE (NEGATIVE); UGLUCOSE NEGATIVE (NEGATIVE)
[2020-10-08 14:29] LABS: ALBUMIN 5.2 g/dL (3.4-5.0); CARBON DIOXIDE 22.5 mmol/L (21-32); CREATININE 1.1 mg/dL (0.6-1.3); POTASSIUM 3.5 mmol/L (3.5-5.1); TOTAL BILIRUBIN 0.5 mg/dL (0.0-1.0)
[2020-10-08] MEDS ORDERED: ONDA-24 PO (15:01)
[2020-10-08] MEDS ORDERED: BEN10 PO (15:01)
[2020-10-08] MEDS ORDERED: FAMO-90 PO (15:01)
--- NOTE | 2020-10-08 15:35 | NUR ---
Patient discharged with v/s stable. Written and verbal after care instructions given and explained. Patient alert, oriented and verbalized understanding of instructions. Ambulatory with steady gait. All questions addressed prior to discharge. ID band removed. Patient advised to follow up with PMD. Rx of Bentyl, Pepcid and Zofran given. Patient educated on indication of medication including possible reaction and side effects. Opportunity to ask questions provided and answered.
[2020-10-08 15:44] VITALS: BP 115/56
== END 2020-10-08 15:35 | disposition home or self-care (01) ==
LOC: MED 12:45
DX: R11.2 Nausea with vomiting, unspecified (principal); F12.10 Cannabis abuse, uncomplicated; R10.9 Unspecified abdominal pain; Z79.899 Other long term (current) drug therapy
CPT/HCPCS: 36415; 80053; 81003; 83690; 85025; 96361; 96372; 96374; 96375; 99284; J1630; J2405; J2765; J7030

== ENCOUNTER 2021-11-27 16:39 | Emergency (ER) | payer OTHER ==
[~2021-11-27] VITALS: Ht 193 cm; Wt 117.5 kg
[~2021-11-27 16:39] MED LIST changes: +BEN10 PO; +ONDA-188 PO; -ONDA-24 PO
[2021-11-27 16:52] VITALS: BP 130/66
[2021-11-27] MEDS ORDERED: ONDANSETRON 4 MG/2 ML VIAL IVP ONE (17:35)
[2021-11-27] MEDS ORDERED: KETOROLAC 30 MG/ML VIAL IVP ONE (17:35)
--- NOTE | 2021-11-27 17:39 | NUR ---
PT C/O ABDOMINAL PAIN WITH N/V X2 DAYS. IV INSERTED TO LEFT AC #[id number]. NAD. SAFETY MAINTAINED.
[2021-11-27] MEDS: NACL 0.9% 1,000 ML IV SCH ×2 (17:40→17:53)
--- NOTE | 2021-11-27 18:00 | NUR ---
pt c/o anxiety and increased abdominal pain with dry heaving. dr lyon made aware.
[2021-11-27] MEDS ORDERED: ATA25 PO (18:45)
[2021-11-27] MEDS ORDERED: IBUP-2213 PO (18:45)
[2021-11-27] MEDS ORDERED: diphenhydrAMINE 50 MG/ML VIAL IVP ONE ×2 (18:45→22:15)
[2021-11-27] MEDS ORDERED: ONDA8TAB87 PO (18:45)
[2021-11-27 19:14] LABS: ALBUMIN 4.8 g/dL (3.4-5.0); ANION GAP 18.1 (8-16); CARBON DIOXIDE 23.6 mmol/L (21-32); CREATININE 1.1 mg/dL (0.6-1.3); POTASSIUM 3.7 mmol/L (3.5-5.1); TOTAL BILIRUBIN 0.7 mg/dL (0.0-1.0)
[2021-11-27 19:18] LABS: BASOPHILS % (AUTO) 0.2 % (0.0-2.0); HEMATOCRIT 44.3 % (36-52); HEMOGLOBIN 14.7 g/dL (12.0-18.0); LYMPHOCYTES # (AUTO) 0.9 K/uL (2.0-11.5); LYMPHOCYTES % (AUTO) 6.5 % (20.5-51.1); MEAN CORPUSCULAR HEMOGLOBIN 30 pg (27-31); MEAN CORPUSCULAR HGB CONC 33 g/dL (33-37); MEAN CORPUSCULAR VOLUME 89.9 fL (80-94); MONOCYTES # (AUTO) 0.6 K/uL (0.8-1.0); MONOCYTES % (AUTO) 4.5 % (1.7-9.3); NEUTROPHILS # (AUTO) 12.8 K/uL (1.8-7.7); NEUTROPHILS % (AUTO) 88.8 % (42.2-75.2); PLATELET COUNT (AUTO) 264 K/uL (140-450); RED BLOOD CELL COUNT(AUTO) 4.92 MIL/uL (4.20-6.10); RED CELL DISTRIBUTION WIDTH 13.7 % (11.6-13.7); WHITE BLOOD COUNT (AUTO) 14.4 K/uL (4.8-10.8)
--- NOTE | 2021-11-27 19:19 | NUR ---
REPORT RECIEVED FROM LICO CHANEL
--- NOTE | 2021-11-27 19:36 | NUR ---
PT STATES HE NO LONGE RFEELS THE PAIN OR NAUSEA. PT IS ABLE TO AMBULATE TO THE RESTROOM UNASSISTED
--- NOTE | 2021-11-27 21:30 | NUR ---
PT NOW HAS A RETURN OF S/S
[2021-11-27] MEDS ORDERED: HALOPERIDOL IM 5 MG/ML VIAL IVP ONE (22:15)
--- NOTE | 2021-11-27 22:57 | NUR ---
PT TAKEN TO CT
--- NOTE | 2021-11-27 23:16 | NUR ---
PT NOW HAVE RELIEF FROM NAUSEA S/P MEDICATION. PT STATES ABD TIRED FROM DRY HEAVING.
[2021-11-27 23:20] LABS: BARBITURATE, URINE NEGATIVE ng/ml (NEG <=200); BENZODIAZEPINE, URINE NEGATIVE ng/mL (NEG <=200); CANNABINOID, URINE POSITIVE ng/mL (NEG <=50); COCAINE, URINE NEGATIVE ng/mL (NEG <=300); OPIATE, URINE NEGATIVE ng/mL (NEG <=2000); PHENCYCLIDINE SCREEN,URINE NEGATIVE ng/mL (NEG <=25)
--- NOTE | 2021-11-28 | NUR ---
Patient discharged with v/s stable. Written and verbal after care instructions given and explained. Patient alert, oriented and verbalized understanding of instructions. Ambulatory with steady gait. All questions addressed prior to discharge. ID band removed. Patient advised to follow up with PMD. Rx of ATARAX HCL, IBUPROFEN, AND ZOFRAN given. Patient educated on indication of medication including possible reaction and side effects. Opportunity to ask questions provided and answered. VSS, A/OX4, UNLABORED BREATHING, AMBULATORY, AND CALM DEMEANOR.
[2021-11-28 00:07] VITALS: BP 121/74
[2021-11-29] MEDS ORDERED: METO-485 PO (17:35)
[2021-11-29] MEDS ORDERED: MECL-303 PO (17:35)
[2021-11-29] MEDS ORDERED: MAG355OR2 PO (17:35)
[2021-11-29] MEDS ORDERED: FAMO-90 PO (17:35)
== END 2021-11-28 | disposition home or self-care (01) ==
LOC: MED 16:39
DX: R10.84 Generalized abdominal pain (principal); R11.2 Nausea with vomiting, unspecified; R42 Dizziness and giddiness; F12.90 Cannabis use, unspecified, uncomplicated; Z79.899 Other long term (current) drug therapy; Z90.49 Acquired absence of other specified parts of digestive tract
CPT/HCPCS: 36415; 74176; 80053; 80305; 83690; 85025; 96361; 96374; 96375; 96376; 99284; G0482; J1200; J1630; J1885; J2405; J7030

== ENCOUNTER 2021-11-29 15:15 | Emergency (ER) | payer OTHER ==
[~2021-11-29] VITALS: Ht 195.6 cm; Wt 116.1 kg
[~2021-11-29 15:15] MED LIST changes: +ATA25 PO; +IBUP-2213 PO; +ONDA8TAB87 PO
--- NOTE | 2021-11-29 15:48 | NUR ---
PT AMBULATED TO ER BED 8
--- NOTE | 2021-11-29 15:51 | NUR ---
DR COLÓN AT BEDSIDE EVALUATING PT AT THIS TIME
[2021-11-29 15:52] VITALS: BP 124/77
[2021-11-29] MEDS ORDERED: MORPHINE SULFATE 2 MG/ML SYR IM STA (15:54)
[2021-11-29] MEDS ORDERED: HALOPERIDOL IM 5 MG/ML VIAL IM ONE (15:55)
[2021-11-29] MEDS ORDERED: FAMOTIDINE 20 MG TAB PO ONE (15:55)
[2021-11-29] MEDS ORDERED: diphenhydrAMINE 50 MG/ML VIAL IM ONE (15:55)
[2021-11-29 16:13] LABS: BASOPHILS % (AUTO) 0.4 % (0.0-2.0); EOSINOPHILS % (AUTO) 0.1 % (0.0-4.0); HEMATOCRIT 41.9 % (36-52); HEMOGLOBIN 14.6 g/dL (12.0-18.0); LYMPHOCYTES # (AUTO) 2.4 K/uL (2.0-11.5); LYMPHOCYTES % (AUTO) 22.1 % (20.5-51.1); MEAN CORPUSCULAR HEMOGLOBIN 31 pg (27-31); MEAN CORPUSCULAR HGB CONC 35 g/dL (33-37); MEAN CORPUSCULAR VOLUME 88.2 fL (80-94); MONOCYTES # (AUTO) 1.1 K/uL (0.8-1.0); MONOCYTES % (AUTO) 9.8 % (1.7-9.3); NEUTROPHILS # (AUTO) 7.3 K/uL (1.8-7.7); NEUTROPHILS % (AUTO) 67.6 % (42.2-75.2); PLATELET COUNT (AUTO) 262 K/uL (140-450); RED BLOOD CELL COUNT(AUTO) 4.75 MIL/uL (4.20-6.10); RED CELL DISTRIBUTION WIDTH 13.7 % (11.6-13.7); WHITE BLOOD COUNT (AUTO) 10.8 K/uL (4.8-10.8)
[2021-11-29 16:35] LABS: ALBUMIN 4.5 g/dL (3.4-5.0); ANION GAP 18.5 (8-16); CARBON DIOXIDE 19.5 mmol/L (21-32); CREATININE 1.1 mg/dL (0.6-1.3)
--- NOTE | 2021-11-29 16:40 | NUR ---
36YO MALE PT C/O PINCHING 7/10 UPPER ABDOMINAL PAIN X6DAYS. PT WAS RECENTLY SEEN FOR S/S AND DC WITH PAIN AND NAUSEA MEDICATION , DENIES RELIEF. REPORTS DIARRHEA AND VOMIT XLAST NIGHT, UNABLE TO RECALL xEPISODES , DENIES BLOOD. PT ABDOMEN PRESENTS NON TENDER OR DISTENDED, ACTIVE X4. DENIES CHEST PAIN, SOB , FEVER OR CHILLS. PT AAOX4, IN VISIBLE DISTRESS AND HYPERVENTALATING. 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 HX: DENIES NKA
[2021-11-29] MEDS ORDERED: POTASSIUM CHLORIDE 10 MEQ TABER PO ONE (16:50)
[2021-11-29] MEDS ORDERED: METOCLOPRAMIDE 10 MG TAB PO ONE (16:50)
[2021-11-29] MEDS ORDERED: FAMO-90 PO (17:35)
[2021-11-29] MEDS ORDERED: METO-485 PO (17:35)
[2021-11-29] MEDS ORDERED: MAG355OR2 PO (17:35)
[2021-11-29] MEDS ORDERED: MECL-303 PO (17:35)
--- NOTE | 2021-11-29 18:25 | NUR ---
Patient discharged with v/s stable. Written and verbal after care instructions FOR CYCLIC VOMITING SYNDROME, CANNABINOID HYPEREMEIS SYNDROME given and explained. Patient alert, oriented and verbalized understanding of instructions. Ambulatory with steady gait. All questions addressed prior to discharge. ID band removed. Patient advised to follow up with PMD. Rx of PEPCID, ANTIVERT, REGLAN AND MAALOX MAX STRENGTH SUSP given. Opportunity to ask questions provided and answered.
[2021-11-29 18:31] VITALS: BP 116/75
--- NOTE | 2021-11-29 18:36 | NUR ---
The patient's care was reviewed and supervised by Kathrine Reynoso RN, RN.
== END 2021-11-29 18:25 | disposition home or self-care (01) ==
LOC: MED 15:15
DX: K29.70 Gastritis, unspecified, without bleeding (principal); F41.9 Anxiety disorder, unspecified; F12.90 Cannabis use, unspecified, uncomplicated
CPT/HCPCS: 36415; 80053; 81002; 83690; 85025; 96372; 99284; J1200; J1630; J2270; J8597; Q0163; 99285